=== PATIENT | female | born 1985 | race Caucasian/White ===

== ENCOUNTER → 2020-11-26 08:01 | Outpatient (BNVA) | payer OTHER, SELFPAY | PROVIDERS: PCP Family Medicine; Referring Provider Family Medicine; Visit Provider Specialist | DX: G93.2 Benign intracranial hypertension (principal); H47.10 Unspecified papilledema; G43.711 Chronic migraine without aura, intractable, with status migrainosus | CPT/HCPCS: 99205 ==

== ENCOUNTER → 2021-01-15 12:03 | Outpatient (BNVA) | payer OTHER, SELFPAY | PROVIDERS: PCP Family Medicine; Visit Provider Specialist | DX: G43.711 Chronic migraine without aura, intractable, with status migrainosus (principal); G93.2 Benign intracranial hypertension | CPT/HCPCS: 99214; 99215 ==

== ENCOUNTER 2021-06-24 09:50 | Outpatient (CLI) | payer OTHER, SELFPAY ==
--- NOTE | 2021-06-24 09:57 | XR_ITS ---
WS: [id number] PROCEDURE: XR chest 2V* [id number] CLINICAL INFORMATION: Pneumonia COMPARISON: September 16, 2010 FINDINGS: Heart: Normal cardiac silhouette. Lungs: Lungs are clear. No consolidation or pleural fluid. No acute pulmonary infiltrates. Bones: Normal visualized bony structures. Cholecystectomy clips. XR/XR chest 2V* [id number] IMPRESSION: Normal chest
== END 2021-06-24 09:51 | disposition home or self-care (01) ==
LOC: RAD 09:53
PROVIDERS: PCP Family Medicine; Visit Provider Internal Medicine Pulmonary Disease
DX: J18.9 Pneumonia, unspecified organism (principal)
CPT/HCPCS: 71046

== ENCOUNTER 2021-09-14 05:01 | Emergency (ER) | payer OTHER, SELFPAY ==
[2021-09-14 05:13] VITALS: BP 155/114; PULSE 88; RESP 16; TEMP 36.3; O2SAT 99; BMI 34.7
[2021-09-14] MEDS: clindamycin 150 mg Capsule 600 MG PO (05:39)
--- NOTE | 2021-09-18 18:14 | W.ED.SKABFB ---
HPI - Skin/Abscess/Foreign Bdy General: Chief complaint: Skin/Abscess/Foreign Body Stated complaint: boil on inside of R leg Time Seen by Provider: 09/14/21 05:11 Source: patient History of Present Illness: 36-year-old female with painful skin lesion to the right groin area no fever. No vomiting. It has started to drain on its own. MD complaint: rash and abscess/boil Onset (ago): day(s) Location: RLE Severity: moderate Quality: aching Pain Consistency: constant Relieving factors: none Associated symptoms: Reports nausea; Deny fever(s), short of breath or vomiting Review of Systems Const: Denies: fever(s) GI: Reports: nausea; Denies: vomiting Skin/Breast: Reports: rash, erythema and skin pain PFS ED PFSH: Medical History (Updated 09/14/21 @ 05:42 by Ra Hirsch DO) Psychiatric care Social History Smoking and tobacco status: former smoker Quit status (tobacco): has quit using tobacco Year quit tobacco: 2015 Former quit date comment: 0.5ppd x 5 years Second hand smoke exposure: Yes Alcohol intake: never Desire information about alcohol rehabilitation?: No Desire information about substance/drug rehabilitation?: No Physical Exam Const: GENERAL APPEARANCE: cooperative; not ill appearing HENMT: COMMON NORMALS: normocephalic and Normal external nose present HEAD & SCALP: normocephalic NOSE: Normal external nose present Eye: COMMON NORMALS: Equal, round and reactive pupils present and EOMs intact bilaterally PUPIL: Yes Equal, round and reactive pupils present Chest: CHEST: Yes Symmetrical chest wall rise Resp: COMMON NORMALS: normal respiratory effort and No use of accessory muscles Cardio: COMMON NORMALS: regular rate and regular rhythm RATE: regular rate RHYTHM: regular rhythm Extremity: NARRATIVE EXTREMITY EXAM: Open small skin abscess to right medial proximal thigh. Mild surrounding cellulitis. No drainable fluid collection by palpation. Neuro: PIO COMA SCALE: document GCS findings [place] coma scale eye opening: Spontaneous P[place] coma scale verbal response: Orientated Pio coma scale motor response: Obey commands Pio coma scale total score: 15 Skin: NARRATIVE SKIN EXAM: See extremity exam Course Vital Signs: Vital signs: Vital Signs Temperature 97.3 F L 09/14/21 05:13 Pulse Rate 88 09/14/21 05:13 Respiratory Rate 16 09/14/21 05:13 Blood Pressure 155/114 09/14/21 05:13 Pulse Oximetry 99 09/14/21 05:13 MDM - Skin/Abscess/Foreign Bdy Medicial Decision Making No drainable abscess. She will get antibiotics. She is holding down fluids. Discharge Plan Discharge Patient Disposition: Home Clinical Impression: Abscess of skin or subcutaneous tissue Condition: Stable Prescriptions: New clindamycin HCl 300 mg capsule 300 mg PO Q6H 10 Days Qty: 40 0RF No Action medroxyprogesterone [Depo-Provera] 150 mg/mL suspension IM 0RF prazosin 5 mg capsule 5 mg PO .HS Qty: 30 1RF buspirone 5 mg tablet 5 mg PO TID Qty: 90 1RF Discharge Orders: Discharge ED (Routine); Ordered 09/14/21 Ordered By: Ra Hirsch Referrals: Matt Garcia MD [Primary Care Provider] - 1-3 days (for wound check) Activity Restrictions/Additional Instructions: Return for fever greater than 100 despite 2-3 doses of antibiotics, worsening pain, spreading redness, swelling, streaking despite antibiotics, any other concerning symptoms. Coding Level of Care Code ED Instruction[employer] Designer for Merry Moya
== END 2021-09-14 06:00 | disposition home or self-care (01) ==
PROVIDERS: Emergency Provider Emergency Medicine; PCP Family Medicine
DX: L02.214 Cutaneous abscess of groin (principal); Z87.891 Personal history of nicotine dependence
CPT/HCPCS: 99283

== ENCOUNTER 2025-03-15 09:21 | Outpatient (CLI) | payer OTHER, SELFPAY ==
--- NOTE | 2025-03-15 09:30 | MR_ITS ---
WS: [id number] MRI BRAIN WITHOUT CONTRAST HISTORY: G43.711 - Chronic migraine without aura, intractable, wit... COMPARISON: 09/23/2020 TECHNIQUE: Diffusion imaging, multiplanar T1, T2 and FLAIR imaging obtained. No evidence for acute infarct or hemorrhage. Keenan-white matter differentiation is normal. No T2 or FLAIR signal hyperintensities. Normal hippocampal formations. No remote or acute infarcts or volume loss. Ventricles and extra-axial spaces are normal. No inferior displacement of cerebellar tonsils. The sella turcica and pituitary gland are unremarkable. Dural venous sinuses and cachil dehe of Sosa demonstrate no abnormality on this unenhanced studies. Paranasal sinuses: Clear. Mastoid air cells: Normal. Calvarium and scalp: Intact. MR/MR head wo con* [id number] IMPRESSION: 1. Unremarkable noncontrast MRI brain. 2. Stable MRI brain since 09/23/2020. No infarcts or small vessel disease.
== END 2025-03-15 09:22 | disposition home or self-care (01) ==
PROVIDERS: PCP Family Medicine; Visit Provider Specialist
DX: G43.711 Chronic migraine without aura, intractable, with status migrainosus (principal)
CPT/HCPCS: 70551